=== PATIENT | male | born 1970 | race Native Hawaiian/Other Pacific Islander ===

== ENCOUNTER 2018-11-15 15:55 | Emergency (ER) | payer OTHER ==
[~2018-11-15] VITALS: Ht 165.1 cm; Wt 120.7 kg
[2018-11-15 18:03] VITALS: BP 159/69; TEMP 97.9
== END 2018-11-15 18:16 | disposition home or self-care (01) ==
LOC: ED 15:55
DX: S91.332A Puncture wound without foreign body, left foot, initial encounter (principal); W45.0XXA Nail entering through skin, initial encounter; Y92.89 Other specified places as the place of occurrence of the external cause
CPT/HCPCS: 90471; 90715; 99283

== ENCOUNTER 2019-01-28 21:35 | Emergency (ER) | payer OTHER ==
[~2019-01-28] VITALS: Ht 165.1 cm; Wt 120.7 kg
[2019-01-28 22:19] LABS: PLATELET COUNT 246 K/uL (142-355)
[2019-01-28 22:24] LABS: POTASSIUM 3.9 mmol/L (3.6-5.2); SODIUM 140 mmol/L (136-145)
[2019-01-28 23:55] VITALS: BP 152/74; TEMP 98.3
== END 2019-01-28 23:55 | disposition home or self-care (01) ==
LOC: ED 21:35
PROVIDERS: Emergency Medicine
DX: B34.9 Viral infection, unspecified (principal); Z91.14 Patient's other noncompliance with medication regimen
CPT/HCPCS: 36415; 80053; 81000; 84484; 85027; 87502; 93005; 96360; 99284; J7120

== ENCOUNTER 2020-08-15 14:37 | Emergency (ER) | payer OTHER ==
[~2020-08-15] VITALS: Ht 160 cm; Wt 136.1 kg
[2020-08-15 14:40] VITALS: BP 177/97; TEMP 97.2
== END 2020-08-15 15:25 | disposition home or self-care (01) ==
LOC: ED 14:37
DX: M25.562 Pain in left knee (principal)
CPT/HCPCS: 96372; 99283; J1885

== ENCOUNTER 2020-11-17 10:24 | Outpatient (CLI) | payer OTHER | END 2020-11-17 21:11 | disposition home or self-care (01) | LOC: RAD 10:24 | PROVIDERS: ATTEND Family Medicine | DX: U07.1 COVID-19 (principal) ==

== ENCOUNTER 2022-08-15 09:01 | Outpatient (CLI) | payer OTHER | END 2022-08-15 19:57 | disposition home or self-care (01) | LOC: RAD 09:01 | PROVIDERS: ATTEND Nurse Practitioner Family | DX: M54.12 Radiculopathy, cervical region (principal) ==